=== PATIENT | female | born 1995 | race Two or more races ===

== ENCOUNTER → 2017-01-03 | Outpatient (REF) | payer BC | LOC: M LAB REF 17:57 | PROVIDERS: ATTEND Surgery | DX: S61.002A Unspecified open wound of left thumb without damage to nail, initial encounter (principal); X58.XXXA Exposure to other specified factors, initial encounter; Y93.9 Activity, unspecified; Y92.9 Unspecified place or not applicable; Y99.8 Other external cause status ==

== ENCOUNTER 2020-06-05 21:58 | Outpatient (CLI) | payer BC ==
[~2020-06-05] VITALS: Ht 162.6 cm; Wt 73.6 kg
--- NOTE | 2020-06-05 22:57 | IPNPDOC ---
Text Note Date of Service The patient was seen on 06/05/20. NOTE Outpatient 25yo [facility] 07/09/2020. Presents at 35w2d with complaints of brisk bleeding with associated decreased movement. Pt reports starting bleeding during intercourse. Reports mild irregular cramping. Denies complications with this . Has PN care in [place]. VSS, no distress. Partner is present. Cat I tracing Mild UC not perceived by patient. Right labia noted to have 2x1cm abrasion that bled heavily to touch. Spec exam, no bleeding internally. Cervix visually LTC. Partner reports "I popped out and that was when the bleeding started" 2x2 placed on abrasion to staunch bleeding. Pt is reassured. Enc PO hydration. Will observe for resolution of contractions then discharge home. Korin Gambino CNM Jun 05, 2020 22:57
--- NOTE | 2020-06-05 23:54 | IPNPDOC ---
Text Note Date of Service The patient was seen on 06/05/20. NOTE Progress Reports feeling reassuring movement UC are spacing out with rest and oral hydration Desires discharge. Rec soaking 2x2 to remove to avoid bleeding. Discharged home. Call with regular, timeable contractions, vaginal bleeding, LOF or decreased movement Keep next office visit. Korin Gambino CNM Jun 05, 2020 23:54
== END 2020-06-05 23:55 | disposition home or self-care (01) ==
LOC: M LDO 21:58
PROVIDERS: ATTEND Advanced Practice Midwife
DX: O36.8130 Decreased fetal movements, third trimester, not applicable or unspecified (principal); Z3A.35 35 weeks gestation of pregnancy; O9A.213 Injury, poisoning and certain other consequences of external causes complicating pregnancy, third trimester; S30.816A Abrasion of unspecified external genital organs, female, initial encounter; X58.XXXA Exposure to other specified factors, initial encounter; Y92.9 Unspecified place or not applicable
CPT/HCPCS: 59025; G0378; G0463